=== PATIENT | male | born 1935 | race Caucasian/White ===

== ENCOUNTER 2019-11-08 10:05 | Outpatient (CLI) | payer MEDICARE ==
--- NOTE | 2019-11-08 12:23 | MRI ---
MRI BRAIN WITH AND WITHOUT CONTRAST: DATE: 11/08/2019 HISTORY: 84-year-old male with right lower extremity weakness. TECHNIQUE: Multiple sequences obtained in axial, sagittal, and coronal planes; pre and post IV injection of gado linium-based contrast agent: 20 mL MultiHance. FINDINGS: The ventricles are normal in size and configuration. There is no major intraaxial signal abnormality , restricted diffusion, abnormal intraaxial enhancement, mass, midline shift or any other mass effect , recent intraaxial hemorrhage, or extraaxial fluid collection. IMPRESSION: Normal. jn[] POS: TPC
--- NOTE | 2019-11-08 12:49 | MRI ---
MRI OF THE LUMBAR SPINE WITH AND WITHOUT CONTRAST: DATE: 11/08/2019. COMPARISON: None. HISTORY: Muscle atrophy of right lower extremity. TECHNIQUE: Multiplanar, multisequence MR imaging of the lumbar spine is provided with and without contrast. FINDINGS: The sagittal STIR imaging demonstrates no focal area of osseous marrow edema. Fluid signal intensity is noted within bilateral facet joints at L2-3 and L3-4, left greater than right. On the basis of 5 lumbar-type vertebral bodies, the conus medullaris terminates at T12-L1. T12-L1: There is disk space narrowing and disk desiccation with mild bilateral facet hypertrophy. N o significant central canal or neural foraminal stenosis. L1-2: Mild bilateral facet hypertrophy. Disk desiccation. No significant central canal or neural for aminal stenosis. L2-3: Disk space narrowing with disk desiccation, disk bulge, and central annular tear. Significant bilateral facet hypertrophy, left greater than right. Moderate associated central canal stenosis wit h significant bilateral lateral recess stenosis present. Mild bilateral neural foraminal stenosis. L3-4: Disk space narrowing and disk desiccation with disk bulge. Severe bilateral facet hypertrophy with severe central canal stenosis. Mild/moderate bilateral neural foraminal stenosis. L4-5: Prominent bilateral facet hypertrophy and hypertrophy of the ligamentum flavum, left greater t [place] right. Disk space narrowing with disk desiccation, degenerative end plate change, and disk-osteo phyte complex. Mild central canal stenosis with moderate left lateral recess stenosis. Moderate/sev ere bilateral neural foraminal stenosis, right greater than left. L5-S1: Bilateral facet hypertrophy. Disk space narrowing with disk desiccation and mild disk bulge. No significant central canal stenosis. Moderate right neural foraminal stenosis and mild left neur al foraminal stenosis. The imaged retroperitoneal structures appear grossly unremarkable. Postcontrast imaging demonstrates no abnormal enhancement involving the contents of the thecal sac, the intervertebral disks, or the i gopal osseous structures. IMPRESSION: Significant multilevel degenerative change within the lumbar spine with multilevel prominent central canal and neural foraminal stenosis as documented above. POS: OFF
[2019-11-08] MEDS ORDERED: Magnevist 469MG/ML 20 ML VIAL ONE ×2 (14:40)
== END 2019-11-08 10:06 | disposition home or self-care (01) ==
LOC: BICMRI 10:05 → MRI 10:06
PROVIDERS: ATTEND Family Medicine
DX: M21.371 Foot drop, right foot (principal); M62.571 Muscle wasting and atrophy, not elsewhere classified, right ankle and foot; M47.816 Spondylosis without myelopathy or radiculopathy, lumbar region; M48.061 Spinal stenosis, lumbar region without neurogenic claudication
CPT/HCPCS: 70553; 72158

== ENCOUNTER 2020-01-23 08:56 | Outpatient (CLI) | payer MEDICARE ==
--- NOTE | 2020-01-23 09:34 | RAD ---
EXAM: XR Lumbar Spine 2 Or 3 View PROVIDED CLINICAL HISTORY: Atrophy of muscles right ankle with foot drop on right. COMPARISON: None FINDINGS: Neutral lateral, flexion, and extension views lumbar spine are provided. Severe degenerative changes are present at the L4-5 level with severe narrowing of the intervertebral disc space height with endplate degenerative changes and prominent osteophytes. Scattered osteophytes are seen throughout th e remainder of the lumbar spine. Prominent facet hypertrophic changes are seen in the lower lumbar spine. Trace grade 1 anterolisthesis is present at the L3-4 level on flexion which corrects with exte nsion. Vertebral body heights are within normal limits. Prominent vascular calcifications are seen in the abdominal aorta and iliac arteries. IMPRESSION: 1. Multilevel degenerative changes greatest at the L4-5 level. 2. Trace grade 1 anterolisthesis of L3 on L4 which is only seen on flexion and corrects with extensio n.
== END 2020-01-23 08:57 | disposition home or self-care (01) ==
LOC: BICRAD 08:56
PROVIDERS: ATTEND Neurological Surgery
DX: M48.062 Spinal stenosis, lumbar region with neurogenic claudication (principal); M54.30 Sciatica, unspecified side; M47.816 Spondylosis without myelopathy or radiculopathy, lumbar region
CPT/HCPCS: 72100